=== PATIENT | male | born 1960 | race Caucasian/White ===

== ENCOUNTER 2019-05-18 09:41 | Outpatient (CLI) | payer MEDICARE, SELFPAY ==
[2019-05-18 10:07] LABS: Basophils % 1.1 %; Eosinophils # 0.1 10^3/uL (0.0-0.8); Eosinophils % 2.5 %; Hematocrit 36.4 % (42.0-52.0); Hemoglobin 12.8 g/dL (11.7-16.6); Lymphocytes # 1.2 10^3/uL (0.8-4.8); Lymphocytes % 31.7 %; Mean Corpuscular HGB Conc 35.2 g/dL (30.0-36.0); Mean Corpuscular Hemoglobin 33.4 pg (28.0-34.0); Monocytes # 0.2 10^3/uL (0.2-0.9); Monocytes % 4.4 %; Neutrophils # 2.2 10^3/uL (1.8-7.7); Neutrophils % 59.8 %; Nucleated Red Blood Cells % 0 %; Platelet Count 125 10^3/cmm (130-400); Red Blood Count 3.83 10^6/uL (4.1-5.3); Red Cell Distribution Width 11.8 % (12.1-15.1); White Blood Count 3.7 10^3/uL (4.0-10.0)
[2019-05-18 10:29] LABS: Alanine Aminotransferase 59 U/L (0-41); Albumin Level 4.5 g/dL (3.5-5.2); Alkaline Phosphatase 163 IU/L (40-130); Anion Gap 13.7 (5-19); Aspartate Amino Transferase 51 U/L (0-40); Blood Urea Nitrogen 12 mg/dL (6-20); Calcium 9.8 mg/dL (8.5-10.5); Carbon Dioxide 27 mmol/L (22-29); Chloride 95 mmol/L (98-107); Chol HDL Ratio 3.98 mg/dL (1.0-5.00); Cholesterol 199 mg/dL (0-200); Globulin 3.3 g/dL (1.3-4.6); Glomerular Filtration Rate 62.2 mL/min (90-130); Glucose 128 mg/dL (74-109); HDL Cholesterol 50 mg/dL (60-100); LDL Cholesterol Calculated 82 mg/dL (50-129); LDL HDL Ratio 1.64 RATIO (0.00-3.22); Potassium 4.7 mmol/L (3.5-5.1); Sodium 131 mmol/L (136-145); Thyroid Stimulating Hormone 2.54 uIU/mL (0.27-4.20); Total Bilirubin 0.3 mg/dL (0.15-1.2); Total Protein 7.8 g/dL (6.6-8.7); Triglycerides 334 mg/dL (0-150)
[2019-05-18 11:06] LABS: 25 Hydroxy Vitamin D 68 ng/mL (30-100)
== END 2019-05-18 09:42 | disposition home or self-care (01) ==
LOC: LAB 09:46
PROVIDERS: Family Provider Internal Medicine; PCP Internal Medicine; Visit Provider Internal Medicine
DX: I10 Essential (primary) hypertension (principal); E78.5 Hyperlipidemia, unspecified; E55.9 Vitamin D deficiency, unspecified
CPT/HCPCS: 80053; 80061; 82306; 84443; 85025

== ENCOUNTER 2020-01-05 10:18 | Outpatient (CLI) | payer MEDICARE, SELFPAY ==
[2020-01-05 10:43] LABS: Basophils % 1.2 %; Eosinophils # 0.1 10^3/uL (0.0-0.8); Eosinophils % 2.7 %; Hemoglobin 13.7 g/dL (11.7-16.6); Lymphocytes % 30.9 %; Mean Corpuscular HGB Conc 34.3 g/dL (30.0-36.0); Mean Corpuscular Hemoglobin 33.7 pg (28.0-34.0); Mean Corpuscular Volume 98.5 fL (80-94); Mean Platelet Volume 9.2 fL (7.4-10.4); Monocytes # 0.2 10^3/uL (0.2-0.9); Monocytes % 5.6 %; Neutrophils # 1.99 10^3/uL (1.8-7.7); Nucleated Red Blood Cells % 0 %; Platelet Count 116 10^3/cmm (130-400); Red Blood Count 4.06 10^6/uL (4.1-5.3); Red Cell Distribution Width 11.8 % (12.1-15.1); White Blood Count 3.4 10^3/uL (4.0-10.0)
[2020-01-05 10:57] LABS: Alanine Aminotransferase 57 U/L (0-41); Albumin Level 4.6 g/dL (3.5-5.2); Alkaline Phosphatase 135 IU/L (40-130); Anion Gap 17.2 (5-19); Aspartate Amino Transferase 65 U/L (0-40); Blood Urea Nitrogen 7 mg/dL (6-20); Calcium 8.8 mg/dL (8.5-10.5); Carbon Dioxide 24 mmol/L (22-29); Chloride 95 mmol/L (98-107); Chol HDL Ratio 4.16 mg/dL (1.0-5.00); Cholesterol 204 mg/dL (0-200); Glomerular Filtration Rate 86.4 mL/min (90-130); Glucose 115 mg/dL (65-115); HDL Cholesterol 49 mg/dL (60-100); Osmolality Calculated 273 mOsm/kg (285-295); Potassium 4.2 mmol/L (3.5-5.1); Sodium 132 mmol/L (136-145); Total Bilirubin 0.7 mg/dL (0.15-1.2); Total Protein 7.6 g/dL (6.6-8.7); Triglycerides 522 mg/dL (0-150)
[2020-01-05 11:19] LABS: LDL Cholesterol Direct 102 mg/dL (0-100)
== END 2020-01-05 10:19 | disposition home or self-care (01) ==
LOC: LAB 10:20
PROVIDERS: PCP Internal Medicine; Visit Provider Internal Medicine
DX: E78.5 Hyperlipidemia, unspecified (principal); I10 Essential (primary) hypertension
CPT/HCPCS: 80053; 80061; 83721; 85025

== ENCOUNTER 2020-04-11 10:23 | Outpatient (CLI) | payer MEDICARE, SELFPAY ==
[2020-04-11 10:55] LABS: Basophils % 1.2 %; Eosinophils # 0.1 10^3/uL (0.0-0.8); Eosinophils % 1.9 %; Hematocrit 42.9 % (42.0-52.0); Hemoglobin 14.7 g/dL (11.7-16.6); Lymphocytes # 1.1 10^3/uL (0.8-4.8); Mean Corpuscular HGB Conc 34.3 g/dL (30.0-36.0); Mean Corpuscular Hemoglobin 33.3 pg (28.0-34.0); Mean Corpuscular Volume 97.1 fL (80-94); Mean Platelet Volume 9.1 fL (7.4-10.4); Monocytes # 0.2 10^3/uL (0.2-0.9); Monocytes % 4.7 %; Neutrophils # 1.89 10^3/uL (1.8-7.7); Neutrophils % 58.9 %; Nucleated Red Blood Cells % 0 %; Platelet Count 139 10^3/cmm (130-400); Red Blood Count 4.42 10^6/uL (4.1-5.3); Red Cell Distribution Width 11.7 % (12.1-15.1); White Blood Count 3.2 10^3/uL (4.0-10.0)
[2020-04-11 11:19] LABS: Alanine Aminotransferase 42 U/L (0-41); Albumin Level 4.8 g/dL (3.5-5.2); Alkaline Phosphatase 123 IU/L (40-130); Anion Gap 17.3 (5-19); Aspartate Amino Transferase 58 U/L (0-40); Blood Urea Nitrogen 7 mg/dL (6-20); Calcium 9.7 mg/dL (8.5-10.5); Carbon Dioxide 24 mmol/L (22-29); Chloride 96 mmol/L (98-107); Glomerular Filtration Rate 86.4 mL/min (90-130); Glucose 107 mg/dL (65-115); Lactate Dehydrogenase 162 U/L (135-225); Osmolality Calculated 274 mOsm/kg (285-295); Potassium 4.3 mmol/L (3.5-5.1); Sodium 133 mmol/L (136-145); Total Bilirubin 0.6 mg/dL (0.15-1.2); Total Protein 7.8 g/dL (6.6-8.7)
[2020-04-11 11:33] LABS: Vitamin B12 395 pg/mL (232-1245)
[2020-04-11 11:34] LABS: Folate Level 10.1 ng/mL (4.5-32.2)
== END 2020-04-11 10:24 | disposition home or self-care (01) ==
LOC: LAB 10:26
PROVIDERS: PCP Internal Medicine; Visit Provider Internal Medicine
DX: I10 Essential (primary) hypertension (principal); R94.5 Abnormal results of liver function studies
CPT/HCPCS: 36415; 80053; 82607; 82746; 83615; 85025

== ENCOUNTER 2021-11-27 11:13 | Outpatient (CLI) | payer MEDICARE, SELFPAY ==
--- NOTE | 2021-11-27 11:26 | XR_ITS ---
WS: [id number] XR hand RT min 3V* [id number] REASON FOR EXAM: HAND PAIN, RIGHT FINDINGS: There are osteoarthritis like arthropathic changes in the interphalangeal joint and metacarpal phalan geal joint of the thumb with subluxation of the metacarpal phalangeal joint. There are similar arthropathic changes in the MP joints of the second and third fingers and there may be associated erosions. There are large osteophytes of the distal second and third metacarpal heads. Similar but less severe arthropathic changes identified in the metacarpal phalangeal joint of the fo urth finger. Compared to the examination of 07/24/2014 there is been progression of the arthropathic abnormalities i n the right hand. XR/XR hand RT min 3V* [id number] IMPRESSION: Osteoarthritis like arthropathy, progressive. The appearance of the second and third MP joints are highly suggestive of CPPD.
== END 2021-11-27 11:14 | disposition home or self-care (01) ==
PROVIDERS: PCP Internal Medicine; Visit Provider Nurse Practitioner Family
DX: M19.041 Primary osteoarthritis, right hand (principal)
CPT/HCPCS: 73130

== ENCOUNTER 2021-12-10 14:22 | Oncology outpatient (recurring) (ONCR) | payer MEDICARE, SELFPAY ==
[2021-12-10 16:49] LABS: Alanine Aminotransferase 31 U/L (0-41); Albumin Level 4.2 g/dL (3.5-5.2); Alkaline Phosphatase 122 U/L (40-130); Anion Gap 15.3 (5-19); Aspartate Amino Transferase 57 U/L (0-40); Blood Urea Nitrogen 9 mg/dL (8-23); Calcium 9.1 mg/dL (8.5-10.5); Carbon Dioxide 24 mmol/L (22-29); Chloride 97 mmol/L (98-107); Globulin 3.6 g/dL (1.3-4.6); Glomerular Filtration Rate 85.8 mL/min (90-130); Glucose 94 mg/dL (65-115); Lactate Dehydrogenase 112 U/L (135-225); Osmolality Calculated 272 mOsm/kg (285-295); Potassium 4.3 mmol/L (3.5-5.1); Sodium 132 mmol/L (136-145); Thyroid Stimulating Hormone 3.27 uIU/mL (0.27-4.20); Total Bilirubin 0.6 mg/dL (0.15-1.2); Total Protein 7.8 g/dL (6.6-8.7)
[2021-12-10 16:53] LABS: Hepatitis A Antibody IgM Non-Reactive (Nonreactive); Hepatitis B Core AB, Total Non-Reactive (Nonreactive); Hepatitis B Surface AB 3.5 (11.5-1000); Hepatitis B Surface Antigen Non-Reactive (Nonreactive); Hepatitis C Virus Antibody Non-Reactive (Nonreactive)
[2021-12-10 17:14] LABS: LAB Peripheral Smear Sent for Review
[2021-12-10 17:33] LABS: Vitamin B12 463 pg/mL (232-1245)
[2021-12-10 18:29] LABS: Folate Level 8.1 ng/mL (4.5-32.2)
== END 2021-12-17 23:59 | disposition home or self-care (01) ==
PROVIDERS: PCP Internal Medicine; Visit Provider Internal Medicine Medical Oncology
DX: D70.9 Neutropenia, unspecified (principal); R74.8 Abnormal levels of other serum enzymes; R53.83 Other fatigue; Z87.891 Personal history of nicotine dependence; D69.6 Thrombocytopenia, unspecified
CPT/HCPCS: 80053; 82607; 82746; 83615; 84443; 86705; 86706; 86709; 86803; 87340; 99205

== ENCOUNTER 2021-12-11 14:23 | Outpatient (CLI) | payer MEDICARE, SELFPAY ==
--- NOTE | 2021-12-11 14:32 | MR_ITS ---
WS: [id number] MRI RIGHT HAND without CONTRAST. COMPARISON: Hand radiographs 11/27/2021 and 07/24/2014 Multiplanar, multisequence imaging is performed without contrast. Advanced loss of normal joint space involving the second and third metacarpal phalangeal joints. Nume asya cysts and articular erosion type changes are noted in the second and third metacarpal heads. The re is a moderate amount of surrounding soft tissue edema within the small muscles of the hand at the level of the distal metacarpals. The edema extends along the dorsal surface of the hand towards the w rist. Subchondral cystic and erosive type changes are most significant in the third metacarpal head extendi ng over length of 1.6 cm. Small hypertrophic osteophytes at the metacarpal heads. Seen best on the sa gittal images is partial subluxation at the second and third metacarpophalangeal joints. There is sli ght volar displacement of the proximal second and third phalanges with respect to the metacarpal head s. There is also bone upon bone at the joint spaces and there could be small trabecular fractures. Ex tensive soft tissue and synovial thickening at this level. Marrow edema extends throughout the entire second metacarpal. MR/MR hand RT wo con* [id number] IMPRESSION: 1. Severe degenerative changes with subchondral cysts and loss of the joint sp aces involving the second and third metacarpal phalangeal joints. Some of these changes are chronic as evidenced on prior radiographs but the edema and soft t issue injury is new. 2. Partial subluxation of the second and third metacarpal heads with respect t o the proximal phalanges. Slight volar displacement of the phalanges with respe ct to the metacarpal heads. 3. Loss of the normal joint space with bone upon bone of the second and third metacarpal heads upon the phalanges. 4. Extensive soft tissue edema involving the soft tissues and small muscles of the hand greatest around the second and third metacarpals but also extending a long the dorsal surface of the hand. 5. Diffuse marrow edema throughout the second metacarpal.
== END 2021-12-11 14:24 | disposition home or self-care (01) ==
LOC: RAD 14:25
PROVIDERS: PCP Internal Medicine; Visit Provider Nurse Practitioner Family
DX: R22.31 Localized swelling, mass and lump, right upper limb (principal); I10 Essential (primary) hypertension
CPT/HCPCS: 73218

== ENCOUNTER 2022-01-08 13:09 | Oncology outpatient (recurring) (ONCR) | payer MEDICARE, SELFPAY ==
--- NOTE | 2022-01-08 13:21 | CT_ITS ---
WS: [id number] CT ABDOMEN AND PELVIS WITH CONTRAST HISTORY: Elevated liver enzymes TECHNIQUE: Imaging performed of the abdomen and pelvis with IV contrast. Single phase imaging of the abdomen. Coronal and sagittal reformats are submitted. All CT scans at [facility] use at [address] one of these dose optimization techniques: automated exposure control; mA and/or kV adjustment per patient size (includes targeted exams where dose is matched to clinical indication); or iterative re construction. IV CONTRAST: Omnipaque 350; 95 mL IV. Oral contrast: Yes. DLP: 1169.81 mGy.cm COMPARISON: None available. Lower thorax: Benign granuloma lingula. Heart is normal size. No hiatal hernia. Liver/biliary system: Mildly prominent liver with changes of hepatic steatosis. Normal portal vein. N o mass. Gallbladder: Normal. No gallstones or wall thickening. No pericholecystic fluid. Pancreas: Normal size pancreas and pancreatic duct. No adjacent inflammation. Spleen: Spleen is moderately enlarged measuring 15.9 cm in length. Adrenal glands: Normal. Right kidney: Mild perinephric stranding. No obstruction or mass. Left kidney: Mild perinephric stranding. No obstruction or mass. Aorta: Moderate atherosclerosis with no aneurysm. Mild soft tissue stranding surrounding the celiac a xis and SMA. Lymphadenopathy: None. Free fluid: There is no free fluid. There is mild soft tissue infiltration throughout the mesentery a nd extending along the paracolic gutters into the pelvis. GI tract: Normally distended stomach. No small bowel obstruction. Normal appendix. No colon obstructi on. There are a few scattered diverticula in the distal colon. Abdominal wall: Unremarkable abdominal wall. No hernia. Pelvis: Artifact through the pelvis from the patient's RIGHT hip arthroplasty. No free fluid or adeno regina is identified. Urinary bladder is well distended. No intraluminal wall thickening or nodule. Th ere is mild soft tissue stranding in the pelvis which is contiguous with the soft tissue infiltration from the paracolic gutters. Bones: L5 anterolisthesis by 12 mm. Bilateral pars defects. Severe disc space narrowing at L5-S1. Kalli or RIGHT hip arthroplasty. CT/CT abdomen pelvis w con* [id number] IMPRESSION: 1. Moderate splenomegaly. Spleen measures 15.9 cm in length. 2. There is mild soft tissue infiltration throughout the mesentery and along t he paracolic gutters into the pelvis. Most likely this is due to edema. Infecti on and infiltration of tumor may appear similar. There is no adenopathy. 3. No GI tract obstruction. 4. Moderate atherosclerosis aorta. 5. Grade 1 spondylolisthesis of L5 and spondylolysis.
[2022-01-08] MEDS: iohexol 350 mg/mL 100 mL Btl IV (14:53)
== END 2022-01-16 23:59 | disposition home or self-care (01) ==
LOC: RAD 13:09 → ONCMED 01-15 06:18
PROVIDERS: PCP Internal Medicine; Visit Provider Internal Medicine Medical Oncology
DX: R74.8 Abnormal levels of other serum enzymes (principal)
CPT/HCPCS: 74177

== ENCOUNTER 2022-04-22 14:30 | Outpatient (CLI) | payer MEDICARE, SELFPAY ==
[2022-04-22 15:28] LABS: Basophils # 0.1 10^3/uL (0.0-0.1); Basophils % 1.5 %; Eosinophils # 0.1 10^3/uL (0.0-0.8); Eosinophils % 1.8 %; Hematocrit 40.6 % (42.0-52.0); Hemoglobin 14.3 g/dL (11.7-16.6); Lymphocytes # 1.1 10^3/uL (0.8-4.8); Lymphocytes % 32.3 %; Mean Corpuscular HGB Conc 35.2 g/dL (30.0-36.0); Mean Corpuscular Hemoglobin 34.1 pg (28.0-34.0); Mean Corpuscular Volume 96.9 fl (80-94); Mean Platelet Volume 9.3 fL (7.4-10.4); Monocytes # 0.2 10^3/uL (0.2-0.9); Neutrophils # 1.96 10^3/uL (1.8-7.7); Neutrophils % 57.4 %; Nucleated Red Blood Cells % 0 %; Platelet Count 118 10^3/cmm (130-400); Red Blood Count 4.19 10^6/uL (4.1-5.3); White Blood Count 3.4 10^3/uL (4.0-10.0)
[2022-04-22 15:59] LABS: Alanine Aminotransferase 18 U/L (0-41); Albumin Level 4.4 g/dL (3.5-5.2); Alkaline Phosphatase 105 U/L (40-130); Anion Gap 12.5 (5-19); Aspartate Amino Transferase 34 U/L (0-40); Blood Urea Nitrogen 6 mg/dL (8-23); Calcium 9.8 mg/dL (8.5-10.5); Carbon Dioxide 28 mmol/L (22-29); Chloride 94 mmol/L (98-107); Globulin 3.4 g/dL (1.3-4.6); Glucose 84 mg/dL (65-115); Lactate Dehydrogenase 119 U/L (135-225); Osmolality Calculated 267 mOsm/kg (285-295); Potassium 4.5 mmol/L (3.5-5.1); Sodium 130 mmol/L (136-145); Total Bilirubin 0.6 mg/dL (0.15-1.2); Total Protein 7.8 g/dL (6.6-8.7)
== END 2022-04-22 14:31 | disposition home or self-care (01) ==
PROVIDERS: PCP Internal Medicine; Visit Provider Internal Medicine Medical Oncology
DX: D70.9 Neutropenia, unspecified (principal); R74.8 Abnormal levels of other serum enzymes
CPT/HCPCS: 80053; 83615; 85025; 99214

== ENCOUNTER 2022-04-22 15:27 | Oncology outpatient (recurring) (ONCR) | payer MEDICARE, SELFPAY | END 2022-05-19 23:59 | disposition home or self-care (01) | PROVIDERS: PCP Internal Medicine; Visit Provider Internal Medicine Medical Oncology | DX: D70.9 Neutropenia, unspecified (principal); D69.6 Thrombocytopenia, unspecified; R16.1 Splenomegaly, not elsewhere classified; K76.89 Other specified diseases of liver; F10.20 Alcohol dependence, uncomplicated; Z87.891 Personal history of nicotine dependence | CPT/HCPCS: 99214 ==

== ENCOUNTER 2023-01-09 20:12 | Emergency (ER) | payer MEDICARE, SELFPAY ==
[2023-01-09 20:18] VITALS: BP 172/96; PULSE 94; RESP 17; TEMP 36.9; O2SAT 93; BMI 25.8
[2023-01-09] MEDS: ondansetron 2 mg/ML SDV 2 mL 4 MG IVP (21:10)
[2023-01-09] MEDS: diphenhydrAMINE 50 mg/mL SDV 1mL IVP (21:10)
[2023-01-09] MEDS: ketorolac 30 mg/mL INJ 15 MG IVP (21:10)
[2023-01-09] MEDS: famotidine 20 mg/2 mL INJ IVP (21:10)
[2023-01-09] MEDS: methylPREDNISolone sod succ 125 MG in water for injection-sterile 2 ML 24 MG IVP (21:11)
--- NOTE | 2023-01-09 22:09 | ED_ITS ---
HPI - Allergic Reaction General: Chief complaint: Allergic Reaction Stated complaint: Stung throat Time Seen by Provider: 01/09/23 20:21 History of Present Illness: HPI narrative: 62-year-old male who states that he is allergic to yellow jackets. He took a d rink out of a can earlier, 2 hours prior to arrival, and says he was stung in the back of his throat. He is complaining of pain swallowing, and some throat tightness although he denies trouble breathing. He denies tongue swelling. No history of itching. No rash. Associated symptoms: Deny abdominal pain, nausea or vomiting Review of Systems Const: Denies: fever(s) or chills Eyes: Denies: change in vision ENMT: Reports: throat pain; Denies: uvular edema Card: Denies: chest pain or palpitations Resp: Denies: dyspnea, productive cough or non-productive cough GI: Denies: abdominal pain, nausea or vomiting PFS ED PFSH: Medical History Anxiety and depression Degenerative arthritis GERD (gastroesophageal reflux disease) Hypercholesteremia Hypertension Surgical History History of elbow surgery Right elbow History of hand surgery Right hand x 3 History of hernia repair Bilateral inguinal hernia repair History of hip replacement Right total hip arthroplasty History of neck surgery Cervical spine fusion History of shoulder surgery Multiple procedures on both shoulders Family History Father Stroke Other Hyperlipidemia Hypertension Denies family history of Diabetes CAD (coronary artery disease) Clotting disorder Dementia Psychiatric illness Chronic kidney disease (CKD) Suicide Anesthesia complication Bleeding disorder Lung disease Cancer Social History Smoking and tobacco status: former smoker (smoked x 36 years) Alcohol intake: current Alcohol intake frequency: 0-2 Drinks per Day Alcohol type: beer Physical Exam Const: COMMON NORMALS: no acute distress GENERAL APPEARANCE: cooperative and comfortable; not ill appearing and not frail appearing HENMT: COMMON NORMALS: normocephalic, atraumatic and Normal external nose present HEAD & SCALP: normocephalic and atraumatic FACE & SINUS: normal facial exam and face symmetric; no erythema and no edema NOSE: Normal external nose present MOUTH: Normal oral and palatal mucosa present, lip normal and tongue normal; no muffled voice THROAT: posterior oropharynx normal; no uvular edema Eye: COMMON NORMALS: Equal, round and reactive pupils present and EOMs intact bilaterally PUPIL: Yes Equal, round and reactive pupils present Neck/C-Spine: GENERAL: Yes trachea midline Chest: CHEST: Yes Symmetrical chest wall rise Resp: COMMON NORMALS: normal respiratory effort, No use of accessory muscles and clear to auscultation bilaterally AUSCULTATION: clear to auscultation bilaterally Cardio: COMMON NORMALS: regular rate and regular rhythm RATE: regular rate RHYTHM: regular rhythm GI: COMMON NORMALS: Normal to inspection, nondistended, normoactive bowel sounds present and Soft to palpation PALPATION: Yes Soft to palpation Neuro: ADRI COMA SCALE: document GCS findings [place] coma scale eye opening: Spontaneous [place] coma scale verbal response: Orientated Adri coma scale motor response: Obey commands [place] coma scale total score: 15 Psych: COMMON NORMALS: mental status grossly normal Course Vital Signs: Vital signs: Vital Signs Temperature 98.5 F 01/09/23 20:18 Pulse Rate 73 01/09/23 23:12 Respiratory Rate 18 01/09/23 22:46 Blood Pressure 141/79 01/09/23 23:12 Pulse Oximetry 92 01/09/23 23:12 Oxygen Delivery Me thod Room Air 01/09/23 22:45 MDM - Allergic Reaction Medical Decision Making 62-year-old male who is feeling better after being stung the back of his throat by a yellowjacket. No respiratory compromise. Saturations are good. Blood pressure has been stable. He is in no distress currently. We will continue steroids for the next couple of days for a Medrol Dosepak. Antihistamines. O utpatient follow-up. Return for worsening symptoms. No radiology studies performed this visit Discharge Plan Discharge Patient Disposition: Home Clinical Impression: Allergic reaction to insect sting Condition: Stable Prescriptions: New Medrol (Benjy) 4 mg tablets,dose pack See Rx Instructions .ROUTE .COMPLEX Qty: 21 0RF Rx Instructions: orally per package directions tramadol 50 mg tablet 50 mg PO TID PRN (Reason: pain) Qty: 7 0RF No Action cetirizine 10 mg tablet 10 mg PO DAILY omeprazole 20 mg capsule,delayed release(DR/EC) 20 mg PO DAILY fenofibrate nanocrystallized 48 mg tablet 48 mg PO DAILY fluticasone propionate 50 mcg/actuation spray,suspension 2 spray intranasal DAILY Rx Instructions: administer into each nostril pramipexole 0.25 mg tablet 0.25 mg PO DAILY sertraline 100 mg tablet 100 mg PO DAILY lisinopril 30 mg tablet 30 mg PO DAILY pravastatin 40 mg tablet 40 mg PO DAILY Discharge Orders: Discharge ED (Routine); Ordered 01/09/23 Ordered By: Nixon Anton Referrals: Deana Marie MD [Primary Care Provider] - 1-3 days Patient Instructions: Insect Bite or Sting (ED), General Allergic Reaction (ED), Opioid Safety, Pain Management Activity Restrictions/Additional Instructions: Medication as directed. Take Benadryl every 6 hours while awake for the next 24 hours, then as needed following. Return for worsening shortness of breath, worsening pain, feeling of throat tightness, any other concerning symptoms. Coding Level of Care Code ED [employer] Equipment Operator for Jaky Guzman
[2023-01-09 22:45] VITALS: BP 146/89; PULSE 76; O2SAT 96
[2023-01-09 22:46] VITALS: RESP 18
[2023-01-09] MEDS: morphine 4 mg/mL SDV 1 mL IVP (22:46)
[2023-01-09 23:12] VITALS: BP 141/79; PULSE 73; O2SAT 92
== END 2023-01-09 23:13 | disposition home or self-care (01) ==
PROVIDERS: Emergency Provider Emergency Medicine; PCP Internal Medicine
DX: T63.461A Toxic effect of venom of wasps, accidental (unintentional), initial encounter (principal); Z87.891 Personal history of nicotine dependence; I10 Essential (primary) hypertension
CPT/HCPCS: 96374; 96375; 99285; J1200; J1885; J2270; J2405; J2930; J3490

== ENCOUNTER 2023-11-09 14:11 | Outpatient (CLI) | payer MEDICARE, SELFPAY ==
--- NOTE | 2023-11-09 14:24 | XR_ITS ---
WS: [id number] XR wrist LT min 3V* [id number] REASON FOR EXAM: L WRIST PAIN FINDINGS: No acute fracture or focal bone lesion. There is moderate narrowing of the radial lunate articulation with moderate subchondral sclerosis in the lunate and radius. Degenerative cystic change can be seen in the lunate. The intercarpal joint spaces are intact and relatively well preserved. There are moderate changes of osteoarthritis in the joints of the thumb with subluxation at the first MCP joint. XR/XR wrist LT min 3V* [id number] IMPRESSION: No acute abnormality. Arthropathic changes as above.
== END 2023-11-09 14:12 | disposition home or self-care (01) ==
PROVIDERS: PCP Internal Medicine; Visit Provider Nurse Practitioner Family
DX: M25.532 Pain in left wrist (principal); M18.9 Osteoarthritis of first carpometacarpal joint, unspecified
CPT/HCPCS: 73110

== ENCOUNTER 2023-12-10 11:57 | Outpatient (CLI) | payer MEDICARE, SELFPAY ==
--- NOTE | 2023-12-10 12:02 | MR_ITS ---
WS: [id number] EXAMINATION: MR wrist LT wo con* [id number] ORDER DATE: 12/10/2023 12:13 PM COMPARISON: None. HISTORY: L WRIST PAIN CONTRAST: None. TECHNIQUE: Axial T1, axial T2 fat sat, coronal T1, coronal proton density fat sat, coronal STIR, andrey nal 3D, and sagittal T1 performed. FINDINGS: Advanced degenerative narrowing of the radiocarpal joint with sclerosis and cystic degenerative perez es involving the distal radius with edema. Cystic degenerative changes involving the proximal and dis miguel carpal row. Sclerosis involving the distal radius with ulna minus variance. Sclerosis involving t he lunate with partial loss of the normal fatty bone marrow signal suspicious for avascular necrosis. Widening of the scapholunate interval measuring 4 mm. Normal bone marrow signal in the scaphoid. Flu id in the DRUJ with tear of the TFCC Small lobulated ganglion cyst at the radial styloid measuring 7 mm. Normal carpal tunnel. Distal radi al ulnar joint effusion with tenosynovitis extensor carpi ulnaris. Small split tear involving the ext ensor carpi ulnaris with associated subluxation. MR/MR wrist LT wo con* [id number] IMPRESSION: 1. 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 2. Advanced degenerative changes at the radiolunate articulation with developi ng osteonecrosis involving the lunate. 3. Fluid in the DRUJ with evidence of TFCC tear. 4. Suspected split tear involving the extensor carpi ulnaris with associated t enosynovitis and subluxation of the ECU.
== END 2023-12-10 11:58 | disposition home or self-care (01) ==
LOC: RAD 11:58
PROVIDERS: PCP Internal Medicine; Visit Provider Nurse Practitioner Family
DX: S56.512A Strain of other extensor muscle, fascia and tendon at forearm level, left arm, initial encounter (principal); S63.072A Subluxation of distal end of left ulna, initial encounter; M24.232 Disorder of ligament, left wrist; M24.132 Other articular cartilage disorders, left wrist; M65.132 Other infective (teno)synovitis, left wrist; M87.838 Other osteonecrosis of left carpus
CPT/HCPCS: 73221

== ENCOUNTER 2024-09-06 14:18 | Outpatient (CLI) | payer MEDICARE, SELFPAY ==
--- NOTE | 2024-09-06 14:31 | XR_ITS ---
WS: [id number] Left wrist, 3 views, 09/06/2024 Clinical Data: LEFT WRIST PAIN Comparison: Left wrist, 11/09/2023 Findings: No fractures or dislocations are seen. There is osteoarthritis with sclerosis, cyst formation and narrowing between the radius and lunate. The sclerosis and narrowing at worsened in the last 10 months. The remainder of the carpal bones is normal. There is no soft tissue swelling. The distal ulna is not remarkable. XR/XR wrist LT min 3V* [id number] Impression: Osteoarthritis with sclerosis, cyst formation and narrowing between the radius and lunate which has worsened.
== END 2024-09-06 14:19 | disposition home or self-care (01) ==
PROVIDERS: PCP Internal Medicine; Visit Provider Nurse Practitioner Family
DX: M19.032 Primary osteoarthritis, left wrist (principal); R93.6 Abnormal findings on diagnostic imaging of limbs
CPT/HCPCS: 73110